=== PATIENT | female | born 1980 | race Caucasian/White ===

== ENCOUNTER → 2016-09-02 | Outpatient (CLI) | payer OTHER ==
[~2016-09-02] MED LIST: GLUCOPHAGE-DPS500 MG PO; LEVEMIR100 UNIT/1 SQ; MOTRIN-DPS800 MG PO; NIPPLECREAM TP; PRENATAL VIT1 TAB PO
== END | disposition home or self-care (01) ==
LOC: PTH.S 08:15
DX: E11.9 Type 2 diabetes mellitus without complications (principal)